=== PATIENT | male | born 1965 | race Caucasian/White ===

== ENCOUNTER 2025-02-10 20:47 | Emergency (ER) | payer OTHER ==
[2025-02-10] MEDS: Ketorolac 30 MG/ML SDV IVPUSH ONE (21:26)
[2025-02-10] MEDS ORDERED: Acetaminophen/oxyCODONE 325-5 MG Tab ONE (21:30)
[2025-02-10] MEDS ORDERED: Sodium Chloride 0.9% 10 ML Syringe FLUSH PRN (22:09)
== END 2025-02-10 21:55 | disposition home or self-care (01) ==
LOC: LB.ED 20:47
DX: S49.91XA Unspecified injury of right shoulder and upper arm, initial encounter (principal); Z88.0 Allergy status to penicillin; Z79.899 Other long term (current) drug therapy; X58.XXXA Exposure to other specified factors, initial encounter
CPT/HCPCS: 20552; 73030; 96374; 96375; 96376; 99283; A9270; J1171; J1885; J2003